=== PATIENT | male | born 1975 | race Caucasian/White ===

== ENCOUNTER → 2016-09-28 | Outpatient (CLI) | payer OTHER ==
[~2016-09-28] MED LIST: CATHETER FLUSH 10 ML SYR IV PRN; FLT05NA16 NS; LORA10CA PO; METO-270 PO; METO-351 PO; PANT20TA2 PO
--- NOTE | 2016-09-28 13:12 | Diagnostic Imaging Report ---
INDICATION: Right upper quadrant abdominal pain EXAM: Hepatobiliary scan with ejection TECHNIQUE: 5.27 mCi of Choletec was given for the scan. Eight ounces of Ensure was given one hour into imaging. FINDINGS: There is homogeneous uptake of isotope throughout the liver. The cystic duct and common duct are both patent. The calculated gallbladder ejection fraction was 75%. IMPRESSION: Normal hepatic biliary scan and gallbladder ejection. Dictated by: Dictated on workstation # [id number]
== END ==
LOC: CARD 09:43
PROVIDERS: ATTEND Family Medicine
DX: R10.11 Right upper quadrant pain (principal); R14.0 Abdominal distension (gaseous); R19.7 Diarrhea, unspecified
CPT/HCPCS: 78227

== ENCOUNTER 2016-10-19 09:23 | Outpatient (CLI) | payer OTHER ==
--- OUTSIDE RECORDS SUMMARY | 2016-10-18 06:29 | XMS REPORT | Continuity of Care Document ---
Author Author [facility] Organization [facility] Address Unknown Phone Unavailable Allergies Active Description Code Type Severity Reaction Onset Reported/Identified Relationship to Patient Clinical Status Yes aspirin [id number] Drug Allergy Moderate HIVES 10/12/2014 Yes naproxen [id number] Drug Allergy Moderate HIVES 10/20/2014 Yes ibuprofen [id number] Drug Allergy Mild HIVES 10/20/2014 Medications Problems Date Dx Coded Attending Type Code Diagnosis Diagnosed By 10/12/2014 Ot 368.9 10/12/2014 Ot 473.9 10/12/2014 Ot 780.4 10/12/2014 Ot 780.4 10/12/2014 Ot 786.09 10/12/2014 DIANA BURRELL Ot 780.4 10/12/2014 DIANA BURRELL Ot 785.1 10/20/2014 Ot 305.1 TOBACCO USE DISORDER 10/20/2014 Ot 327.23 OBSTRUCTIVE SLEEP APNEA (ADULT) (PEDIATR 10/20/2014 Ot 401.9 HYPERTENSION NOS 10/20/2014 Ot 414.01 CORONARY ATHEROSCLEROSIS OF [place] CORON 10/20/2014 Ot 780.4 DIZZINESS AND GIDDINESS 10/20/2014 Ot 786.09 RESPIRATORY ABNORM NEC 10/20/2014 Ot 786.50 CHEST PAIN NOS 10/20/2014 Ot 794.30 ABN CARDIOVASC STUDY NOS 10/20/2014 Ot V58.69 OTH MED,LT,CURRENT USE 05/05/2015 Ot 368.9 05/05/2015 Ot 473.9 05/05/2015 Ot 780.4 05/05/2015 Ot 780.4 05/05/2015 Ot 786.09 05/05/2015 DIANA BURRELL Ot 780.4 05/05/2015 DIANA BURRELL Ot 785.1 05/05/2015 Ot 278.00 05/05/2015 Ot 327.23 05/05/2015 Ot 429.9 05/05/2015 Ot 786.50 04/18/2016 Ot 780.4 DIZZINESS AND GIDDINESS 04/18/2016 Ot 786.09 RESPIRATORY ABNORM NEC 04/18/2016 DIANA BURRELL CANCER REGISTRY COORDINATOR Ot 780.4 DIZZINESS AND GIDDINESS 04/18/2016 DIANA BURRELL CANCER REGISTRY COORDINATOR Ot 785.1 PALPITATIONS 04/18/2016 Ot 278.00 OBESITY, NOS 04/18/2016 Ot 327.23 OBSTRUCTIVE SLEEP APNEA (ADULT) (PEDIATR 04/18/2016 Ot 429.9 HEART DISEASE NOS 04/18/2016 Ot 786.50 CHEST PAIN NOS 04/20/2016 MAKEDA HOANG DIESEL ENGINE ENGINEER Ot R10.11 RIGHT UPPER QUADRANT PAIN 04/20/2016 MAKEDA HOANG DIESEL ENGINE ENGINEER Ot R10.12 LEFT UPPER QUADRANT PAIN 04/20/2016 MAKEDA HOANG DIESEL ENGINE ENGINEER Ot R10.13 EPIGASTRIC PAIN 04/20/2016 MAKEDA HOANG DIESEL ENGINE ENGINEER Ot R11.0 NAUSEA 04/20/2016 MAKEDA HOANG DIESEL ENGINE ENGINEER Ot R19.7 DIARRHEA, UNSPECIFIED 04/27/2016 Ot 780.4 DIZZINESS AND GIDDINESS 04/27/2016 Ot 786.09 RESPIRATORY ABNORM NEC 04/27/2016 DIANA BURRELL CANCER REGISTRY COORDINATOR Ot 780.4 DIZZINESS AND GIDDINESS 04/27/[address] [facility] Ot 785.1 PALPITATIONS 04/27/2016 Ot 278.00 OBESITY, NOS 04/27/2016 Ot 327.23 OBSTRUCTIVE SLEEP APNEA (ADULT) (PEDIATR 04/27/2016 Ot 429.9 HEART DISEASE NOS 04/27/2016 Ot 786.50 CHEST PAIN NOS 04/27/2016 MAKEDA HOANG DIESEL ENGINE ENGINEER Ot R10.11 RIGHT UPPER QUADRANT PAIN 04/27/2016 MAKEDA HOANG DIESEL ENGINE ENGINEER Ot R10.12 LEFT UPPER QUADRANT PAIN 04/27/2016 MAKEDA HOANG DIESEL ENGINE ENGINEER Ot R10.13 EPIGASTRIC PAIN 04/27/2016 MAKEDA HOANG DIESEL ENGINE ENGINEER Ot R11.0 NAUSEA 04/27/2016 MAKEDA HOANG DIESEL ENGINE ENGINEER Ot R19.7 DIARRHEA, UNSPECIFIED 05/20/2016 MAKEDA HOANG DIESEL ENGINE ENGINEER Ot R10.11 RIGHT UPPER QUADRANT PAIN 05/20/2016 MAKEDA HOANG DIESEL ENGINE ENGINEER Ot R10.12 LEFT UPPER QUADRANT PAIN 05/20/2016 MAKEDA HOANG DIESEL ENGINE ENGINEER Ot R10.13 EPIGASTRIC PAIN 05/20/2016 MAKEDA HOANG DIESEL ENGINE ENGINEER Ot R11.0 NAUSEA 05/20/2016 MAKEDA HOANG DIESEL ENGINE ENGINEER Ot R19.7 DIARRHEA, UNSPECIFIED 10/01/2016 ORENDER DO, MONTEZ S Ot R10.11 RIGHT UPPER QUADRANT PAIN 10/01/2016 ORENDER DO, MONTEZ S Ot R14.0 ABDOMINAL DISTENSION (GASEOUS) 10/01/2016 ORENDER DO, MONTEZ S Ot R19.7 DIARRHEA, UNSPECIFIED 10/01/2016 ORENDER DO, MONTEZ S Ot R10.11 RIGHT UPPER QUADRANT PAIN 10/01/2016 ORENDER DO, MONTEZ S Ot R14.0 ABDOMINAL DISTENSION (GASEOUS) 10/01/2016 ORENDER DO, MONTEZ S Ot R19.7 DIARRHEA, UNSPECIFIED Procedures Results Encounters ACCT No. Visit Date/Time Discharge Status Pt. Type Provider Facility Loc./Unit Complaint [id number] 04/05/2014 08:51:00 2013 23:59:59 CLS Outpatient DIANA BURRELL [facility] CARD PALPITATIONS,DIZZINESS [id number] 09/28/2016 09:43:00 ACT Outpatient FLORECITA FORD DOLINE S [facility] CARD RUQ PAIN,BLOATING [id number] 04/18/2016 09:08:00 ACT Outpatient MAKEDA HOANG DORIE [facility] RAD RUQ/LUQ/EPIGASTRIC PAIN,NAUSEA,DIARRHEA [id number] 10/15/2014 15:24:00 Document Registration [id number] 10/12/2014 12:40:00 Document Registration [id number] 10/16/2012 08:02:00 Document Registration [id number] 12/22/2009 15:50:00 Document Registration
[~2016-10-19] VITALS: Ht 188 cm; Wt 117.9 kg
[~2016-10-19 09:23] MED LIST changes: -CATHETER FLUSH 10 ML SYR IV PRN; -METO-270 PO
[2016-10-19] MEDS ORDERED: METO-270 PO (09:25)
--- OUTSIDE RECORDS SUMMARY | 2016-10-19 09:27 | XMS REPORT | Continuity of Care Document ---
Author Author [facility] Organization [facility] Address Unknown Phone Unavailable Allergies Active Description Code Type Severity Reaction Onset Reported/Identified Relationship to Patient Clinical Status Yes aspirin [id number] Drug Allergy Moderate HIVES 10/12/2014 Yes naproxen [id number] Drug Allergy Moderate HIVES 10/20/2014 Yes ibuprofen [id number] Drug Allergy Mild HIVES 10/20/2014 Medications Problems [...] NOS 10/20/2014 Ot 414.01 CORONARY ATHEROSCLEROSIS OF [place] CORON 10/20/2014 Ot 780.4 DIZZINESS AND GIDDINESS [...] 786.09 RESPIRATORY ABNORM NEC 04/18/2016 DIANA BURRELL IT SECURITY ADMINISTRATOR Ot 780.4 DIZZINESS AND GIDDINESS 04/18/2016 DIANA BURRELL IT SECURITY ADMINISTRATOR Ot 785.1 PALPITATIONS 04/18/2016 Ot 278.00 OBESITY, NOS 04/18/2016 Ot 327.23 OBSTRUCTIVE SLEEP APNEA (ADULT) (PEDIATR 04/18/2016 Ot 429.9 HEART DISEASE NOS 04/18/2016 Ot 786.50 CHEST PAIN NOS 04/20/2016 MAKEDA HOANG MARKETING DIRECTOR ASSISTED LIVING Ot R10.11 RIGHT UPPER QUADRANT PAIN 04/20/2016 MAKEDA HOANG MARKETING DIRECTOR ASSISTED LIVING Ot R10.12 LEFT UPPER QUADRANT PAIN 04/20/2016 MAKEDA HOANG MARKETING DIRECTOR ASSISTED LIVING Ot R10.13 EPIGASTRIC PAIN 04/20/2016 MAKEDA HOANG MARKETING DIRECTOR ASSISTED LIVING Ot R11.0 NAUSEA 04/20/2016 MAKEDA HOANG MARKETING DIRECTOR ASSISTED LIVING Ot R19.7 DIARRHEA, UNSPECIFIED 04/27/2016 Ot 780.4 DIZZINESS AND GIDDINESS 04/27/2016 Ot 786.09 RESPIRATORY ABNORM NEC 04/27/2016 DIANA BURRELL IT SECURITY ADMINISTRATOR Ot 780.4 DIZZINESS AND GIDDINESS 04/27/2016 DIANA BURRELL [facility] Ot 785.1 PALPITATIONS 04/27/2016 Ot 278.00 OBESITY, NOS 04/27/2016 Ot 327.23 OBSTRUCTIVE SLEEP APNEA (ADULT) (PEDIATR 04/27/2016 Ot 429.9 HEART DISEASE NOS 04/27/2016 Ot 786.50 CHEST PAIN NOS 04/27/2016 MAKEDA HOANG MARKETING DIRECTOR ASSISTED LIVING Ot R10.11 RIGHT UPPER QUADRANT PAIN 04/27/2016 MAKEDA HOANG MARKETING DIRECTOR ASSISTED LIVING Ot R10.12 LEFT UPPER QUADRANT PAIN 04/27/2016 MAKEDA HOANG MARKETING DIRECTOR ASSISTED LIVING Ot R10.13 EPIGASTRIC PAIN 04/27/2016 MAKEDA HOANG MARKETING DIRECTOR ASSISTED LIVING Ot R11.0 NAUSEA 04/27/2016 MAKEDA HOANG MARKETING DIRECTOR ASSISTED LIVING Ot R19.7 DIARRHEA, UNSPECIFIED 05/20/2016 MAKEDA HOANG MARKETING DIRECTOR ASSISTED LIVING Ot R10.11 RIGHT UPPER QUADRANT PAIN 05/20/2016 MAKEDA HOANG MARKETING DIRECTOR ASSISTED LIVING Ot R10.12 LEFT UPPER QUADRANT PAIN 05/20/2016 MAKEDA HAONG MARKETING DIRECTOR ASSISTED LIVING Ot R10.13 EPIGASTRIC PAIN 05/20/2016 MAKEDA HOANG MARKETING DIRECTOR ASSISTED LIVING Ot R11.0 NAUSEA 05/20/2016 MAKEDA HOANG MARKETING DIRECTOR ASSISTED LIVING Ot R19.7 DIARRHEA, UNSPECIFIED 10/01/2016 ORENDER DO, [...] Status Pt. Type Provider Facility Loc./Unit Complaint [id number] 04/05/2014 08:51:00 2013 23:59:59 CLS Outpatient DIANA BURRELL [facility] CARD PALPITATIONS,DIZZINESS [id number] 09/28/2016 09:43:00 ACT Outpatient FLORECITA FORD DOLINE S [facility] CARD RUQ PAIN,BLOATING [id number] 04/18/2016 09:08:00 ACT Outpatient MAKEDA HOANG DORIE [facility] RAD RUQ/LUQ/EPIGASTRIC PAIN,NAUSEA,DIARRHEA [id number] 10/15/2014 15:24:00 Document Registration [id number] 10/12/2014 12:40:00 Document Registration [id number] 10/16/2012 08:02:00 Document Registration [id number] 12/22/2009 15:50:00 Document Registration
== END 2016-10-19 10:29 ==
LOC: PREOP 09:23
PROVIDERS: ATTEND Surgery
DX: Z01.818 Encounter for other preprocedural examination (principal); K21.9 Gastro-esophageal reflux disease without esophagitis; R13.10 Dysphagia, unspecified

== ENCOUNTER 2016-10-22 06:57 | Day surgery (SDC) | payer OTHER ==
[~2016-10-22] VITALS: Ht 188 cm; Wt 117.9 kg
[~2016-10-22 06:57] MED LIST changes: +METO-270 PO
--- OUTSIDE RECORDS SUMMARY | 2016-10-22 07:01 | XMS REPORT | Continuity of Care Document ---
Author Author [facility] Organization [facility] Address Unknown Phone Unavailable Allergies Active Description Code Type Severity Reaction Onset Reported/Identified Relationship to Patient Clinical Status Yes aspirin [id number] Drug Allergy Moderate HIVES 10/12/2014 Yes naproxen [id number] Drug Allergy Moderate HIVES 10/20/2014 Yes ibuprofen [id number] Drug Allergy Mild HIVES 10/20/2014 Medications Problems [...] NOS 10/20/2014 Ot 414.01 CORONARY ATHEROSCLEROSIS OF [place] CORON 10/20/2014 Ot 780.4 DIZZINESS AND GIDDINESS [...] 786.09 RESPIRATORY ABNORM NEC 04/18/2016 DIANA BURRELL ACCOUNT SUPERVISOR Ot 780.4 DIZZINESS AND GIDDINESS 04/18/2016 DIANA BURRELL ACCOUNT SUPERVISOR Ot 785.1 PALPITATIONS 04/18/2016 Ot 278.00 OBESITY, NOS 04/18/2016 Ot 327.23 OBSTRUCTIVE SLEEP APNEA (ADULT) (PEDIATR 04/18/2016 Ot 429.9 HEART DISEASE NOS 04/18/2016 Ot 786.50 CHEST PAIN NOS 04/20/2016 MAKEDA HOANG ACCOUNT REPRESENTATIVE Ot R10.11 RIGHT UPPER QUADRANT PAIN 04/20/2016 MAKEDA HOANG ACCOUNT REPRESENTATIVE Ot R10.12 LEFT UPPER QUADRANT PAIN 04/20/2016 MAKEDA HOANG ACCOUNT REPRESENTATIVE Ot R10.13 EPIGASTRIC PAIN 04/20/2016 MAKEDA HOANG ACCOUNT REPRESENTATIVE Ot R11.0 NAUSEA 04/20/2016 MAKEDA HOANG ACCOUNT REPRESENTATIVE Ot R19.7 DIARRHEA, UNSPECIFIED 04/27/2016 Ot 780.4 DIZZINESS AND GIDDINESS 04/27/2016 Ot 786.09 RESPIRATORY ABNORM NEC 04/27/2016 DIANA BURRELL ACCOUNT SUPERVISOR Ot 780.4 DIZZINESS AND GIDDINESS 04/27/2016 DIANA BURRELL [facility] Ot 785.1 PALPITATIONS 04/27/2016 Ot 278.00 OBESITY, NOS 04/27/2016 Ot 327.23 OBSTRUCTIVE SLEEP APNEA (ADULT) (PEDIATR 04/27/2016 Ot 429.9 HEART DISEASE NOS 04/27/2016 Ot 786.50 CHEST PAIN NOS 04/27/2016 MAKEDA HOANG ACCOUNT REPRESENTATIVE Ot R10.11 RIGHT UPPER QUADRANT PAIN 04/27/2016 MAKEDA HOANG ACCOUNT REPRESENTATIVE Ot R10.12 LEFT UPPER QUADRANT PAIN 04/27/2016 MAKEDA HOANG ACCOUNT REPRESENTATIVE Ot R10.13 EPIGASTRIC PAIN 04/27/2016 MAKEDA HOANG ACCOUNT REPRESENTATIVE Ot R11.0 NAUSEA 04/27/2016 MAKEDA HOANG ACCOUNT REPRESENTATIVE Ot R19.7 DIARRHEA, UNSPECIFIED 05/20/2016 MAKEDA HOANG ACCOUNT REPRESENTATIVE Ot R10.11 RIGHT UPPER QUADRANT PAIN 05/20/2016 MAKEDA HOANG ACCOUNT REPRESENTATIVE Ot R10.12 LEFT UPPER QUADRANT PAIN 05/20/2016 MAKEDA HOANG ACCOUNT REPRESENTATIVE Ot R10.13 EPIGASTRIC PAIN 05/20/2016 MAKEDA HOANG ACCOUNT REPRESENTATIVE Ot R11.0 NAUSEA 05/20/2016 MAKEDA HOANG ACCOUNT REPRESENTATIVE Ot R19.7 DIARRHEA, UNSPECIFIED 10/01/2016 ORENDER DO, [...] DO, MONTEZ S Ot R19.7 DIARRHEA, UNSPECIFIED 10/19/2016 SANIA RAI, BRUNO Negrete Ot K21.9 GASTRO-ESOPHAGEAL REFLUX DISEASE WITHOUT 10/19/2016 SANIA RAI, BRUNO Negrete Ot R13.10 DYSPHAGIA, UNSPECIFIED 10/19/2016 SANIA RAI, BRNUO Negrete Ot Z01.818 ENCOUNTER FOR OTHER PREPROCEDURAL EXAMIN Procedures Results Encounters ACCT No. Visit Date/Time Discharge Status Pt. Type Provider Facility Loc./Unit Complaint [id number] 10/19/2016 09:23:00 2016 10:29:00 DIS Outpatient BRUNO LUI MD [facility] PREOP DYSPHAGIA [id number] 04/05/2014 08:51:00 2013 23:59:59 CLS Outpatient DIANA BURRELL [facility] CARD PALPITATIONS,DIZZINESS [id number] 10/22/2016 06:57:00 ACT Outpatient BRUNO LUI MD [facility] ENDO DYSPHAGIA [id number] 09/28/2016 09:43:00 ACT Outpatient MONTEZ FORD DO S [facility] CARD RUQ PAIN,BLOATING [id number] 04/18/2016 09:08:00 ACT Outpatient MAKEDA HOANG APRN [facility] RAD RUQ/LUQ/EPIGASTRIC PAIN,NAUSEA,DIARRHEA [id number] 10/15/2014 15:24:00 Document Registration [id number] 10/12/2014 12:40:00 Document Registration [id number] 10/16/2012 08:02:00 Document Registration [id number] 12/22/2009 15:50:00 Document Registration
--- OUTSIDE RECORDS SUMMARY | 2016-10-22 07:01 | XMS REPORT | Continuity of Care Document ---
Author Author [facility] Organization [facility] Address Unknown Phone Unavailable Allergies Active Description Code Type Severity Reaction Onset Reported/Identified Relationship to Patient Clinical Status Yes aspirin [id number] Drug Allergy Moderate HIVES 10/12/2014 Yes naproxen [id number] Drug Allergy Moderate HIVES 10/20/2014 Yes ibuprofen [id number] Drug Allergy Mild HIVES 10/20/2014 Medications Problems [...] NOS 10/20/2014 Ot 414.01 CORONARY ATHEROSCLEROSIS OF [place] CORON 10/20/2014 Ot 780.4 DIZZINESS AND GIDDINESS [...] 786.09 RESPIRATORY ABNORM NEC 04/18/2016 DIANA BURRELL AERONAUTICAL ENGINEERING PROFESSOR Ot 780.4 DIZZINESS AND GIDDINESS 04/18/2016 DIANA BURRELL AERONAUTICAL ENGINEERING PROFESSOR Ot 785.1 PALPITATIONS 04/18/2016 Ot 278.00 OBESITY, NOS 04/18/2016 Ot 327.23 OBSTRUCTIVE SLEEP APNEA (ADULT) (PEDIATR 04/18/2016 Ot 429.9 HEART DISEASE NOS 04/18/2016 Ot 786.50 CHEST PAIN NOS 04/20/2016 MAKEDA HOANG [employer] Ot R10.11 RIGHT UPPER QUADRANT PAIN 04/20/2016 MAKEDA HOANG [employer] Ot R10.12 LEFT UPPER QUADRANT PAIN 04/20/2016 MAKEDA HOANG [employer] Ot R10.13 EPIGASTRIC PAIN 04/20/2016 MAKEDA HOANG [employer] Ot R11.0 NAUSEA 04/20/2016 MAKEDA HOANG [employer]PER [employer] Ot R19.7 DIARRHEA, UNSPECIFIED 04/27/2016 Ot 780.4 DIZZINESS AND GIDDINESS 04/27/2016 Ot 786.09 RESPIRATORY ABNORM NEC 04/27/2016 DIANA BURRELL AERONAUTICAL ENGINEERING PROFESSOR Ot 780.4 DIZZINESS AND GIDDINESS 04/27/2016 DIANA BURRELL [facility] Ot 785.1 PALPITATIONS 04/27/2016 Ot 278.00 OBESITY, NOS 04/27/2016 Ot 327.23 OBSTRUCTIVE SLEEP APNEA (ADULT) (PEDIATR 04/27/2016 Ot 429.9 HEART DISEASE NOS 04/27/2016 Ot 786.50 CHEST PAIN NOS 04/27/2016 MAKEDA HOANG [employer]PER [employer] Ot R10.11 RIGHT UPPER QUADRANT PAIN 04/27/2016 MAKEDA HOANG [employer] Ot R10.12 LEFT UPPER QUADRANT PAIN 04/27/2016 MAKEDA HOANG [employer] Ot R10.13 EPIGASTRIC PAIN 04/27/2016 MAKEDA HOANG [employer] Ot R11.0 NAUSEA 04/27/2016 MAKEDA HOANG [employer] Ot R19.7 DIARRHEA, UNSPECIFIED 05/20/2016 MAKEDA HOANG [employer] Ot R10.11 RIGHT UPPER QUADRANT PAIN 05/20/2016 MAKEDA HOANG [employer] Ot R10.12 LEFT UPPER QUADRANT PAIN 05/20/2016 MAKEDA HOANG [employer] Ot R10.13 EPIGASTRIC PAIN 05/20/2016 MAKEDA HOANG [employer] Ot R11.0 NAUSEA 05/20/2016 MAKEDA HOANG [employer] Ot R19.7 DIARRHEA, UNSPECIFIED 10/01/2016 ORENDER DO, [...] Ot R13.10 DYSPHAGIA, UNSPECIFIED 10/19/2016 SANIA RAI, BRUNO Negrete Ot Z01.818 ENCOUNTER FOR OTHER PREPROCEDURAL EXAMIN Procedures Results Encounters ACCT No. Visit Date/Time Discharge Status Pt. Type Provider Facility Loc./Unit Complaint [id number] 10/19/2016 09:23:00 2016 10:29:00 DIS Outpatient BRUNO LUI MD [facility] PREOP DYSPHAGIA [id number] 04/05/2014 08:51:00 2013 23:59:59 CLS Outpatient DIANA BURRELL [facility] CARD PALPITATIONS,DIZZINESS [id number] 10/22/2016 06:57:00 ACT Outpatient BRUNO LUI MD [facility] ENDO DYSPHAGIA [id number] 09/28/2016 09:43:00 ACT Outpatient MONTEZ FORD DO S [facility] CARD RUQ PAIN,BLOATING [id number] 04/18/2016 09:08:00 ACT Outpatient MAKEDA HOANG APRN [facility] RAD RUQ/LUQ/EPIGASTRIC PAIN,NAUSEA,DIARRHEA [id number] 10/15/2014 15:24:00 Document Registration [id number] 10/12/2014 12:40:00 Document Registration [id number] 10/16/2012 08:02:00 Document Registration [id number] 12/22/2009 15:50:00 Document Registration
[2016-10-22] MEDS ORDERED: NALOXONE 0.4 MG/ML 1 ML (NARCAN) VIAL IVP PRN (07:15)
[2016-10-22] MEDS ORDERED: HURRICAINE EXT TUBE (BENZOCAINE) XX PRN (07:15)
[2016-10-22] MEDS ORDERED: FLUMAZENIL (ROMAZICON) 0.1 MG/ML 5 ML VIAL INJ PRN (07:15)
[2016-10-22] MEDS ORDERED: NS IV 500 ML 500 ML ONE (07:20)
[2016-10-22] MEDS ORDERED: NS IV 500 ML 500 ML IV PRN (07:30)
[2016-10-22 07:40] VITALS: BP 139/99
[2016-10-22] MEDS ORDERED: MIDAZOLAM 2 MG/2 ML (VERSED) VIAL ONE ×4 (08:04)
[2016-10-22] MEDS ORDERED: fentaNYL INJECTION 100 MCG/2 ML AMP ONE (08:04)
[2016-10-22] MEDS ORDERED: HURRICAINE EXT TUBE (BENZOCAINE) ONE (08:05)
[2016-10-22] MEDS: MIDAZOLAM 2 MG/2 ML (VERSED) VIAL IVP PRN ×4 (08:13→08:21)
[2016-10-22] MEDS: fentaNYL INJECTION 100 MCG/2 ML AMP IVP PRN ×2 (08:14→08:17)
--- NOTE | 2016-10-22 08:16 | Pre-Op Note & Conscious Sedat ---
Pre-Operative Progress Note H&P Reviewed The H&P was reviewed, patient examined and no changes noted. Date H&P Reviewed: Oct 22, 2016 Time H&P Reviewed: 08:16 Pre-Op Diagnosis: GERD with dysphagia Conscious Sedation Pre-Proced ASA Class: 2 Airway Mallampati Classification: (poarch appropriate class) I. II. III, IV Lungs Heart ASA score ASA 1: a normal healthy patient ASA 2: a patient with a mild systemic disease (mid diabetes, controlled hypertension, obesity ASA 3: a patient with a severe systemic disease that limits activity (angina , COPD, prior Myocardial infarction) ASA 4: a patient with an incapacitating disease that is a constant threat to life (CHF, renal failure) ASA 5: a moribund patient not expected to survive 24 hrs. (ruptured aneurysm) ASA 6: a declared brain patient whose organs are being harvested. For emergent operations, add the letter E after the classification Grade 3 Sedation Plan: Discussed options with patient/fam Note The patient is an appropriate candidate to undergo the planned procedure, sedation, and anesthesia. The patient immediately re-assessed prior to indication. BRUNO LUI MD Oct 22, 2016 8:16 am
--- NOTE | 2016-10-22 08:31 | Progress Note-Post Operative ---
Post-Operative Progess Note Pre-Operative Diagnosis GERD with dysphagia Post-Operative Diagnosis tortuous esophagus with a distal peptic stricture. Distal gastritis Post-Op Procedure Note Date of Procedure: Oct 22, 2016 Name of Procedure: EGD with antral biopsy Balloon dilatation of esophageal stricture Anesthesia Type sedation Specimen(s) collected antral mucosa BRUNO LUI MD Oct 22, 2016 8:31 am
--- NOTE | 2016-10-22 08:33 | Discharge Inst-Simple/Standard ---
Discharge Inst-Standard Discharge Medications New, Converted or Re-Newed RX: Other Patient Instructions/Follow Up Plan of Care/Instructions/FU: to increase Prilosec to 20 mg twice a day. Follow-up with Dr. Wilburn Activity as Tolerated: Yes Discharge Diet: No Restrictions BRUNO LUI MD Oct 22, 2016 8:33 am
[2016-10-22 08:52] VITALS: BP 126/71
[2016-10-22 09:19] VITALS: BP 117/63
[2016-10-22 09:25] VITALS: BP 117/63
--- NOTE | 2016-10-22 09:41 | PROCEDURE REPORT ---
PROCEDURE PHYSICIAN: BRUNO LUI DATE OF PROCEDURE: 10/22/2016 PROCEDURE: 1. Upper GI endoscopy with antral biopsy. 2. Balloon dilatation of esophageal stricture. SURGEON: Cade INDICATION FOR THE PROCEDURE: This gentleman came in for an endoscopic assessment of symptoms of reflux disease and intermittent dysphagia. An informed consent was obtained after reviewing the procedure in detail. DESCRIPTION OF PROCEDURE: He was placed in left lateral decubitus position and his vital signs were monitored. Conscious sedation was achieved using Versed and fentanyl. The flexible gastroscope was introduced down the esophagus, past the stomach, into the proximal duodenum. FINDINGS: ESOPHAGUS: Quite tortuous, hiatal hernia and a peptic stricture at the distal end. It was dilated to 20 mm with balloon. STOMACH: Mild distal gastritis. Biopsy for Helicobacter was obtained. DUODENUM: Normal. He tolerated the procedure well and was taken back to the nursing area in a stable condition. IMPRESSION: 1. Dyspeptic symptoms. 2. Esophageal stricture with distal gastritis. 3. Balloon dilatation completed. Job ID: [id number] Dictated Date: 10/22/2016 08:28:37 Electronic Typesetting Machine Operator Date: 10/22/2016 09:37:33 / tyra MORAES
== END 2016-10-22 09:25 | disposition home or self-care (01) ==
LOC: ENDO 06:57
PROVIDERS: ATTEND Surgery
DX: K22.2 Esophageal obstruction (principal); K29.70 Gastritis, unspecified, without bleeding; K44.9 Diaphragmatic hernia without obstruction or gangrene
CPT/HCPCS: 88305

== ENCOUNTER 2018-08-29 08:00 | Outpatient (RCR) | payer BC ==
[~2018-08-29 08:00] MED LIST changes: -METO-270 PO; +METO-387 PO
== END 2018-11-27 | disposition home or self-care (01) ==
LOC: LAB 08:00
PROVIDERS: ATTEND Family Medicine
DX: Z30.8 Encounter for other contraceptive management (principal)
CPT/HCPCS: 89321

== ENCOUNTER → 2019-05-19 | Outpatient (CLI) | payer BC ==
--- NOTE | 2019-05-19 15:14 | Diagnostic Imaging Report ---
INDICATION: Pain behind the right nipple. COMPARISON: No prior mammograms are available for comparison. TECHNIQUE: Unilateral right 2D and 3D diagnostic mammography was performed with CAD. In addition, a single left MLO tomographic image was also performed for comparison purposes. FINDINGS: There is mild fibroglandular tissue in the retroareolar right breast, consistent with gynecomastia. No discrete mass is seen. This is noted to a lesser degree in the left retroareolar region. There are benign calcifications bilaterally. No suspicious microcalcifications are seen. The axillae contain fatty lymph nodes bilaterally. IMPRESSION: Findings are suggestive of very mild gynecomastia bilaterally, slightly greater on the right. No concerning mass is seen. Even so, directed sonographic interrogation of the retroareolar right breast is recommended and will be performed today. ACR BI-RADS Category 0: Incomplete. (Needs additional imaging evaluation). Result letter will be mailed to the patient. Note: At least 10% of breast cancer is not imaged by mammography. Dictated by: Dictated on workstation # [id number]
--- NOTE | 2019-05-19 15:20 | Diagnostic Imaging Report ---
INDICATION: Mastodynia. COMPARISON: Correlation is made with the diagnostic mammogram from earlier this same day. FINDINGS: Sonographic interrogation of the retroareolar right breast was performed. No sonographic abnormality is seen. No solid or cystic masses are detected. IMPRESSION: No sonographic abnormality is detected. The findings noted mammographically are consistent with mild gynecomastia. ACR BI-RADS Category 1: Negative. Dictated by: Dictated on workstation # [id number]
== END ==
LOC: RAD 13:55
PROVIDERS: ATTEND Nurse Practitioner Family
DX: N64.4 Mastodynia (principal)

== ENCOUNTER 2019-09-02 19:53 | Outpatient (CLI) | payer BC | END 2019-09-03 06:45 | disposition home or self-care (01) | LOC: SLEEP 19:53 | PROVIDERS: ATTEND Family Medicine | DX: G47.33 Obstructive sleep apnea (adult) (pediatric) (principal); I10 Essential (primary) hypertension; K21.9 Gastro-esophageal reflux disease without esophagitis | CPT/HCPCS: 95811 ==

== ENCOUNTER → 2020-11-23 | Outpatient (CLI) | payer BC ==
[~2020-11-23] VITALS: Ht 182 cm; Wt 136.0 kg
[~2020-11-23] MED LIST changes: +CATHETER FLUSH 10 ML SYR IV PRN; -METO-387 PO; +MTP25TSR PO; +REGADENOSON 0.4 MG/5 ML SYR (LEXISCAN) IV ONE
[2020-11-23 13:17] VITALS: BP 148/95
--- NOTE | 2020-11-23 14:58 | Cardiology Stress Test Report ---
Stress Test Report Date of Procedure/Referring: Date of Procedure: Nov 23, 2020 PCP Marizol Grady MD Admitting Physician Dawn Wilburn DO Indications: Hypertension Baseline Heart Rate: 67 Baseline Blood Pressure: Blood Pressure Systolic: 148 Blood Pressure Diastolic: 95 Baseline Vitals Vital Signs Date Time Temp Pulse Resp B/P (MAP) Pulse Ox O2 Delivery O2 Flow Rate FiO2 11/23/20 13:17 62 18 148/95 (112) 98 Room Air Baseline EKG: Baseline EKG: Normal sinus Rhythm Summary After explaining the procedure to the patient, he signed a consent and then brought to the stress nuclear laboratory. Patient received 0.4 mg Lexiscan for stress test, ECG, heart rate and blood pressure were monitored continuously. Resting and stress dose of radio tracer were injected, imaging was acquired and reviewed in short axis, horizontal long axis and vertical long axis views. TID: 1.02 SSS: 6 SDS: 3 EF: 55 1. Patient tolerated Lexiscan well 2. Mild decreased uptake involving the mid to apical anterior wall with mild reversibility 3. Normal left ventricular size, EF 55% MARIZOL GRADY MD Nov 23, 2020 14:58
== END ==
LOC: CARD 11:30
PROVIDERS: ATTEND Internal Medicine Cardiovascular Disease
DX: I11.9 Hypertensive heart disease without heart failure (principal)
CPT/HCPCS: 78452; 93017; 93306; A9502

== ENCOUNTER 2020-12-07 09:00 | Day surgery (SDC) | payer BC ==
[2020-12-07] VITALS (11 sets, daily range): BP systolic 100–130; BP diastolic 56–89
[~2020-12-07] VITALS: Ht 182.9 cm; Wt 136.4 kg
[2020-12-07 07:44] LABS: HEMOGLOBIN 13.9 g/dL (13.3-17.7); MEAN PLATELET VOLUME 9.5 fL (9.0-12.2); WHITE BLOOD COUNT 7.8 10^3/uL (4.3-11.0)
--- NOTE | 2020-12-07 07:49 | Diagnostic Imaging Report ---
INDICATION: Dyspnea Portable chest shows normal heart size and vascularity. The lungs are clear. There is no effusion or pneumothorax. There is no bony abnormality. IMPRESSION: No acute abnormality is seen with no change from 10/20/2014. Dictated by: Dictated on workstation # [id number]
[2020-12-07 08:03] LABS: ALANINE AMINOTRANSFERASE 50 U/L (0-55); ALBUMIN 4.3 GM/DL (3.2-4.5); ALKALINE PHOSPHATASE 50 U/L (40-136); BILIRUBIN,TOTAL 0.5 MG/DL (0.1-1.0); BUN/CREATININE RATIO 13; CALCIUM 8.7 MG/DL (8.5-10.1); CARBON DIOXIDE 24 MMOL/L (21-32); CHLORIDE 104 MMOL/L (98-107); CHOLESTEROL 158 MG/DL (< 200); CREATININE SERUM 0.92 MG/DL (0.60-1.30); GFR ESTIMATED > 60; GLUCOSE 112 MG/DL (70-105); HDL CHOLESTEROL 37 MG/DL (40-60); POTASSIUM 4.1 MMOL/L (3.6-5.0); SODIUM 140 MMOL/L (135-145); TOTAL PROTEIN 8.1 GM/DL (6.4-8.2); TRIGLYCERIDES 138 MG/DL (<150); VLDL CHOLESTEROL 28 MG/DL (5-40)
[2020-12-07 08:17] LABS: INR 0.9 (0.8-1.4); PROTHROMBIN TIME PATIENT 12.3 SEC (12.2-14.7)
--- NOTE | 2020-12-07 08:46 | Cardiac Procedure Note-CS/ASA ---
Pre-Procedure Note Pre-Op Procedure Note H&P Reviewed The H&P was reviewed, patient examined and no changes noted. Date H&P Reviewed: Dec 07, 2020 Time H&P Reviewed: 08:46 Conscious Sedation Pre-Proced Time 08:46 ASA Score 3 For ASA 3 and 4: Consider anesthesia and medical clearance. Also, for patients with a history of failed moderate sedation consider anesthesia. Airway Lungs Heart ASA score ASA 1: a normal healthy patient ASA 2: a patient with a mild systemic disease (mid diabetes, controlled hypertension, obesity x ASA 3: a patient with a severe systemic disease that limits activity (angina, COPD, prior Myocardial infarction) ASA 4: a patient with an incapacitating disease that is a constant threat to life (CHF, renal failure) ASA 5: a moribund patient not expected to survive 24 hrs. (ruptured aneurysm) ASA 6: a declared brain- patient whose organs are being harvested. For emergent operations, add the letter E after the classification Mallampati Classification Grade 3 Sedation Plan Analgesia, Amnesia, Plan communicated to team members, Discussed options with patient/fam, Discussed risks with patient/fam The patient is an appropriate candidate to undergo the planned procedure, sedation, and anesthesia. The patient immediately re-assessed prior to indication. MARIZOL HARMON MD Dec 07, 2020 08:46
[~2020-12-07 09:00] MED LIST changes: -CATHETER FLUSH 10 ML SYR IV PRN; +CPAP; +HEParin (CATH LAB) 2,000 ML IV ONE; +HEParin 1000 UNIT/ML (10ML VIAL) FOR BOLUS ONE; +LIDOCAINE 1% INJ 20 ML 20 ML VIAL ONE; +LISI-729 PO; +MIDAZOLAM 5 MG/5 ML (VERSED) VIAL ONE; +NITRO DRIP 25000 MCG/D5W 250 ML IV ONE; +NS IV 1000 ML 1,000 ML IV SCH; +NS IV 1000 ML 1,000 ML ONE; +PANT40TA52 PO; -REGADENOSON 0.4 MG/5 ML SYR (LEXISCAN) IV ONE; +VERAPAMIL 5 MG/2 ML (CALAN) VIAL IV ONE; +fentaNYL INJ 100 MCG/2 ML AMP ONE
--- NOTE | 2020-12-07 09:44 | Discharge Inst-Post CATH ---
Discharge Inst-CATH/EP Problems Reviewed?: Yes Post Cardiac Cath/EP D/C Inst Follow Up/Plan Appointment with Dr. Grady's office in 4 weeks <b>CARDIAC CATH/EP PROCEDURE DISCHARGE INSTRUCTIONS</b> ACTIVITY * Go Home directly and rest. * Limit activity of the leg (or wrist if it was used) for 7 days including aerobics, swimming, jogging, bicycling, etc. * Restrict stair-climbing for 7 days if possible, if not, climb up with your non-cath leg, then bring together on the same step. * Avoid lifting, pushing, pulling or excessive movement of the affected extremity for 7 days. * Customary sexual activity may be resumed after 2 days-use caution not to use a position that strains or causes pain to the affected extremity. * No driving for 24 hours. * NO SMOKING. * Avoid straining for bowel movements for 7 days. * Gentle walking on level ground is allowed. * Returning to work will depend on the type of procedure and the results. Your doctor will discuss this with you. CALL YOUR DOCTOR FOR ANY OF THE FOLLOWING: *If bleeding from the puncture site occurs- Apply gentle pressure to site with clean cloth and call your doctor or EMS. * If a knot or lump forms under the skin, increases in size, or causes pain. * If bruising appears to be worsening or moving further down your leg instead of disappearing. * Temperature above 101 F. CARE OF YOUR GROIN INCISION; * Bruising or purple discoloration of the skin near the puncture site is common. * You may shower only, no bathtub bathing for 5 days. Be careful to avoid slipping as your leg may feel stiff. * If a closure device was used on your femoral artery, please see the attached guide regarding care of the device and your leg. * Leave dressing on FOR 24 hours. CARE OF YOUR WRIST INCISION; * Bruising or purple discoloration of the skin near the puncture site is common. * You may shower. * DO NOT submerge wrist. * Leave dressing on FOR 24 hours. MARIZOL GRADY MD Dec 07, 2020 9:44 am
[2020-12-07] MEDS ORDERED: NS IV 1000 ML 1,000 ML IV SCH (09:45)
--- NOTE | 2020-12-07 09:47 | Cardiac Cath Report ---
Cardiac Cath Report Physician (s)/Cephalometric Tracer (s) Physician MARIZOL HARMON MD Pre-Procedure Diagnosis Pre-Procedure Diagnosis: Coronary artery disease Post-Procedure Note Procedure Start Date: Dec 07, 2020 Name of Procedure: Left heart catheterization Findings/Procedure Note PROCEDURE NOTE: 45 years old gentleman with history of hypertension, mild hyperlipidemia, had an abnormal stress test, has been having chest pain, scheduled for cardiac catheterization possible PTCA. After explaining the procedure to the patient, all pros and cons were explained, all questions were answered. The patient signed the consent and then he was placed on the cardiac catheterization laboratory. Groin was prepped SL fashion local anesthesia was used. Sheath placed in the right radial artery, [place] catheter was advanced to the left ventricular cavity, pressure was measured, pullback LV to aorta was done, pressure was measured, intubated the right and left coronary system, multiple views were obtained. At the end of the procedure the sheath was removed. Vascular band was used FINDINGS: Hemodynamics LV 73/10, end-diastolic pressure of 10 Aorta 76/59 mean of 67 ANATOMY: Left Main is free of obstructive disease Left Anterior Descending is free of obstructive disease Left Circumflex is free of obstructive disease Right Coronory Artery has mild disease nonobstructive disease LV Gram was not done, pressure was measured CONCLUSION: 1. Mild coronary artery disease nonobstructive disease 2. Normal left ventricular end-diastolic pressure DISCUSSION AND RECOMMENDATION: Medical therapy is recommended no intervention is warranted Anesthesia Type: Conscious Sedation Estimated blood loss (mL): 10 ml Contrast Amount: 46 ml Total Radiation Dose: 485 mGy Post-Procedure Diagnosis Post-operative diagnosis: Chest pain Coronary artery disease Hypertension Hyperlipidemia MARIZOL HARMON MD Dec 07, 2020 9:47 am
== END 2020-12-07 12:45 | disposition home or self-care (01) ==
LOC: CATH 09:00 → CSD 09:55 → CATH 12:45
PROVIDERS: ATTEND Internal Medicine Cardiovascular Disease
DX: I25.10 Atherosclerotic heart disease of native coronary artery without angina pectoris (principal); I65.23 Occlusion and stenosis of bilateral carotid arteries; I10 Essential (primary) hypertension; E66.9 Obesity, unspecified; J44.9 Chronic obstructive pulmonary disease, unspecified; R73.03 Prediabetes; R55 Syncope and collapse; E78.2 Mixed hyperlipidemia; Z79.899 Other long term (current) drug therapy; Z68.41 Body mass index [BMI] 40.0-44.9, adult; Z88.6 Allergy status to analgesic agent; Z83.3 Family history of diabetes mellitus; Z87.891 Personal history of nicotine dependence; Z99.89 Dependence on other enabling machines and devices
CPT/HCPCS: 71045; 80053; 80061; 85027; 85610; 85730; 87081; 93458; C1894; 36415

== ENCOUNTER → 2021-03-03 | Outpatient (CLI) | payer BC ==
[~2021-03-03] MED LIST changes: -HEParin (CATH LAB) 2,000 ML IV ONE; -HEParin 1000 UNIT/ML (10ML VIAL) FOR BOLUS ONE; -LIDOCAINE 1% INJ 20 ML 20 ML VIAL ONE; -MIDAZOLAM 5 MG/5 ML (VERSED) VIAL ONE; -NITRO DRIP 25000 MCG/D5W 250 ML IV ONE; -NS IV 1000 ML 1,000 ML IV SCH; -NS IV 1000 ML 1,000 ML ONE; -VERAPAMIL 5 MG/2 ML (CALAN) VIAL IV ONE; -fentaNYL INJ 100 MCG/2 ML AMP ONE
--- NOTE | 2021-03-03 15:08 | Diagnostic Imaging Report ---
INDICATION: Pre MRI screening. TIME OF EXAM: 02:37 p.m. TECHNIQUE: Two views of the orbits were obtained. FINDINGS: No definite radiopaque orbital foreign body is identified. IMPRESSION: No radiopaque orbital foreign body is detected. Dictated by: Dictated on workstation # [id number]
== END ==
LOC: RAD 02-28 15:30
PROVIDERS: ATTEND Family Medicine
DX: Z01.818 Encounter for other preprocedural examination (principal); G62.9 Polyneuropathy, unspecified; R25.1 Tremor, unspecified; R25.3 Fasciculation

== ENCOUNTER → 2022-02-01 | Outpatient (CLI) | payer BC ==
[~2022-02-01] MED LIST changes: -LISI-729 PO; +LISI5TAB20 PO
== END ==
LOC: CARD 13:34
PROVIDERS: ATTEND Internal Medicine Cardiovascular Disease
DX: I10 Essential (primary) hypertension (principal)
CPT/HCPCS: 93306